=== PATIENT | female | born 1980 | race American Indian/Alaskan Native ===

== ENCOUNTER 2017-09-26 07:20 | Emergency (ER) | payer BC ==
[2017-09-26] MEDS ORDERED: NACL 0.9% 1000 ML 1,000 ML IV ONE (07:43)
[2017-09-26] MEDS ORDERED: ZOFRAN ONE (08:00)
[2017-09-26 08:03] LABS: Basophils % (Auto) 0.5 % (0.0-1.8); Eosinophils # (Auto) 0.2 K/mm3 (0.0-0.4); Hematocrit 36.3 % (30.3-42.9); Hemoglobin 12.3 gm/dl (10.1-14.3); Lymphocytes # (Auto) 2.6 K/mm3 (1.2-5.4); Lymphocytes % (Auto) 46.3 % (13.4-35.0); Mean Corpuscular HGB Conc 34 % (30-34); Mean Corpuscular Hemoglobin 32 pg (28-32); Mean Corpuscular Volume 96 fl (79-97); Monocytes # (Auto) 0.3 K/mm3 (0.0-0.8); Monocytes % (Auto) 6.2 % (0.0-7.3); Platelet Count 382 K/mm3 (140-440); Red Cell Distribution Width 14.3 % (13.2-15.2)
[2017-09-26] MEDS ORDERED: ZOFRAN IV ONE (08:09)
[2017-09-26 08:22] LABS: Alanine Aminotransferase 19 units/L (7-56); BUN/Creatinine Ratio 15; Blood Urea Nitrogen 9 mg/dL (7-17); Calcium 8.9 mg/dL (8.4-10.2); Hemolysis Index 16
[2017-09-26] MEDS ORDERED: ANTIVERT PO ONE (09:39)
--- NOTE | 2017-09-26 11:18 | Emergency Department Report ---
ED Dizziness HPI - General Chief Complaint: Dizziness Stated Complaint: DIZZINESS Time Seen by Provider: 09/26/17 09:30 Source: patient Mode of arrival: Ambulatory Limitations: No Limitations - History of Present Illness Initial Comments: 36-year-old female presents to the hospital complaining of dizziness and room spinning sensation is 11 PM last night. Symptoms worsened this a.m. associated with vomiting and nausea. Patient denies headache, blurred vision, focal weakness or numbness. She is currently on her menstrual cycle and has heavy menses secondary to fibroids however, bleeding is not heavier than her baseline. She denies decreased hearing or ear ache. Patient received Zofran prior to my evaluation with no further vomiting. - Related Data Previous Rx's Medication Instructions Recorded Last Taken Type Meclizine [Antivert] 25 mg PO TID PRN #30 tablet 09/26/17 Unknown Rx Allergies Allergy/AdvReac Type Severity Reaction Status Date / Time No Known Allergies Allergy Verified 09/26/17 08:09 ED Review of Systems ROS: Stated complaint: DIZZINESS Other details as noted in HPI Comment: All other systems reviewed and negative ED Past Medical Hx - Past Medical History Previous Medical History?: Yes Additional medical history: Uterine Fibroids - Surgical History Hx Appendectomy: Yes - Social History Smoking Status: Never Smoker Substance Use Type: None - Medications Home Medications: Home Medications Medication Instructions Recorded Confirmed Last Taken Type Meclizine [Antivert] 25 mg PO TID PRN #30 tablet 09/26/17 Unknown Rx ED Physical Exam - General Limitations: No Limitations - Other Other exam information: General: No limitations, patient is alert in no acute distress Head exam: Atraumatic, normocephalic Eyes exam: Normal appearance. Fatiguing lateral nystagmus worse with right gaze. Vertigo reproducible with postural changes ENT: Moist mucous membrane, normal oropharynx, b/l TM normal Neck exam: Normal inspection, full range of motion, no meningismus nontender Respiratory exam: Clear to auscultation bilateral, no wheezes, rales, crackles Cardiovascular: Normal rate and rhythm, normal heart sounds Abdomen: Soft, nondistended, and nontender, with normal bowel sounds, no rebound, or guarding Extremity: Full range of motion normal inspection no deformity Back: Normal Inspection, full range of motion, no tenderness Neurologic: Alert, oriented x3, cranial nerves intact, no motor or sensory deficit, finger nose finger function intact Psychiatric: normal affect, normal mood Skin: Warm, dry, intact ED Course Vital Signs 09/26/17 09/26/17 09/26/17 07:27 09:09 09:15 Temperature 97.8 F Pulse Rate 70 Respiratory 16 Rate Blood Pressure 124/82 112/68 O2 Sat by Pulse 98 100 100 Oximetry ED Medical Decision Making - Lab Data Result diagrams: 09/26/17 07:50 09/26/17 07:47 Lab Results 09/26/17 09/26/17 09/26/17 Range/Units 07:47 07:50 10:37 WBC 5.6 (4.5-11.0) K/mm3 RBC 3.80 (3.65-5.03) M/mm3 Hgb 12.3 (10.1-14.3) gm/dl Hct 36.3 (30.3-42.9) % MCV 96 (79-97) fl MCH 32 (28-32) pg MCHC 34 (30-34) % RDW 14.3 (13.2-15.2) % Plt Count 382 (140-440) K/mm3 Lymph % (Auto) 46.3 H (13.4-35.0) % [place] % (Auto) 6.2 (0.0-7.3) % Eos % (Auto) 3.0 (0.0-4.3) % Baso % (Auto) 0.5 (0.0-1.8) % Lymph # 2.6 (1.2-5.4) K/mm3 [place] # 0.3 (0.0-0.8) K/mm3 Eos # 0.2 (0.0-0.4) K/mm3 Baso # 0.0 (0.0-0.1) K/mm3 Seg Neutrophils % 44.0 (40.0-70.0) % Seg Neutrophils # 2.5 (1.8-7.7) K/mm3 Sodium 142 (137-145) mmol/L Potassium 3.8 (3.6-5.0) mmol/L Chloride 105.3 (98-107) mmol/L Carbon Dioxide 24 (22-30) mmol/L Anion Gap 17 mmol/L BUN 9 (7-17) mg/dL Creatinine 0.6 L (0.7-1.2) mg/dL Estimated GFR > 60 ml/min BUN/Creatinine Ratio 15 % Glucose 99 (65-100) mg/dL Calcium 8.9 (8.4-10.2) mg/dL Total Bilirubin 0.30 (0.1-1.2) mg/dL AST 17 (5-40) units/L ALT 19 (7-56) units/L Alkaline Phosphatase 39 (35-129) units/L Total Protein 6.7 (6.3-8.2) g/dL Albumin 4.0 (3.9-5) g/dL Albumin/Globulin Ratio 1.5 % HCG, Qual Negative (Negative) - EKG Data -: EKG Interpreted by [place] EKG shows normal: sinus rhythm, axis (qrs 43), QRS complexes (qrsd 74), ST-T waves (no stemi/t inv) Rate: normal (69) - EKG Data When compared to previous EKG there are: previous EKG unavailable - Medical Decision Making Patient's symptoms suggestive of vertigo without any focal neurologic deficits. Labs unremarkable. Patient received IV fluids, meclizine, Zofran ED with improvement. Will be discharged home with ENT follow-up and medications. - Differential Diagnosis vertigo, anemia, dehydration Critical Care Time: No Critical care attestation.: If time is entered above; I have spent that time in minutes in the direct care of this critically ill patient, excluding procedure time. ED Disposition Clinical Impression: Vertigo Disposition: DC-01 TO HOME OR SELFCARE Is pt being admited?: No Does the pt Need Aspirin: No Condition: Stable Instructions: Vertigo (ED) Additional Instructions: Take the medication as prescribed. Controlling the dizziness should help control the nausea and vomiting. Follow up with the ear nose and throat doctor ( ENT doctor) and a primary care doctor for further treatment. Return if symptoms worsen as indicated by a discharge instructions Prescriptions: Meclizine [Antivert] 25 mg PO TID PRN #30 tablet PRN Reason: Vertigo Referrals: MARBELLA GONZALES MD [Staff Physician] - 3-5 Days CLEMENTE ANDREW MD [Staff Physician] - 3-5 Days Time of Disposition: 11:29
[2017-09-26 11:34] VITALS: BP 130/73
== END 2017-09-26 12:30 | disposition home or self-care (01) ==
LOC: ED 07:20
DX: R42 Dizziness and giddiness (principal); R11.2 Nausea with vomiting, unspecified
CPT/HCPCS: 36415; 80053; 84703; 85025; 93005; 93010; 96361; 96374; 99283; J2405; J7030